=== PATIENT | female | born 1995 | race Caucasian/White ===

== ENCOUNTER 2016-08-22 17:30 | Observation (INO) | payer OTHER ==
[~2016-08-22] VITALS: Ht 160 cm; Wt 92.5 kg
[2016-08-22 20:49] VITALS: BP 125/73
[2016-08-22] MEDS ORDERED: FERROUS SULFAT325 M1 PO (21:51)
[2016-08-22] MEDS ORDERED: PRENATAL LOW IR1 TA1 PO (21:51)
== END 2016-08-22 22:46 | disposition home or self-care (01) ==
LOC: MLD 17:30 → MFCC 17:53
PROVIDERS: ADMIT Obstetrics & Gynecology; ATTEND Obstetrics & Gynecology
DX: O36.8130 Decreased fetal movements, third trimester, not applicable or unspecified (principal); Z3A.36 36 weeks gestation of pregnancy
CPT/HCPCS: 76815; 81000; G0378; Q0092

== ENCOUNTER 2016-09-12 14:51 | Inpatient (IN) | payer OTHER ==
[~2016-09-12] VITALS: Ht 160 cm; Wt 93.4 kg
[2016-09-12] MEDS: LACTATED RINGERS 1,000 ML IV SCH ×2 (01:07→16:52)
[~2016-09-12 14:51] MED LIST: FERR-193 PO; PREN-380 PO
[2016-09-12] MEDS ORDERED: OXYTOCIN 20 UNITS/LR PREMIX 1,000 ML IV SCH (15:08)
[2016-09-12] MEDS ORDERED: AMPICILLIN 2,000 MG in NACL 0.9% 100 ML IV ONE (15:10)
[2016-09-12] MEDS ORDERED: MISOPROSTOL 25 MCG TAB VG PRN (15:10)
[2016-09-12] MEDS ORDERED: OXYTOCIN 10 UNITS/ML VIAL IM SCH (15:10)
[2016-09-12] MEDS ORDERED: PROMETHAZINE 25 MG/ML VIAL IVP PRN (15:10)
[2016-09-12] MEDS ORDERED: AMPICILLIN 2,000 MG in NACL 0.9% 100 ML IV SCH (15:38)
[2016-09-12 16:10] VITALS: BP 118/82
[2016-09-12] MEDS ORDERED: AMPICILLIN 2,000 MG VIAL ONE (16:34)
[2016-09-12 16:36] LABS: BASOPHILS # (AUTO) 0.1 K/uL (0.00-0.22); BASOPHILS % (AUTO) 0.8 % (0.0-2.0); EOSINOPHILS # (AUTO) 0.2 K/uL (0-0.4); EOSINOPHILS % (AUTO) 1.8 % (0.0-4.0); HEMATOCRIT 35.6 % (36-48); HEMOGLOBIN 11.6 g/dL (12.0-16.0); LYMPHOCYTES # (AUTO) 1.6 K/uL (2.5-16.5); LYMPHOCYTES % (AUTO) 17.1 % (20.5-51.1); MEAN CORPUSCULAR HEMOGLOBIN 27 pg (27-31); MEAN CORPUSCULAR HGB CONC 33 g/dL (33-37); MEAN CORPUSCULAR VOLUME 84 fL (80-94); MONOCYTES # (AUTO) 0.7 K/uL (0.8-1.0); MONOCYTES % (AUTO) 6.8 % (1.7-9.3); NEUTROPHILS % (AUTO) 73.5 % (42.2-75.2); PLATELET COUNT (AUTO) 220 K/uL (140-450); RED BLOOD CELL COUNT(AUTO) 4.22 MIL/uL (4.20-5.40); RED CELL DISTRIBUTION WIDTH 14.7 % (11.6-13.7); WHITE BLOOD COUNT (AUTO) 9.6 K/uL (4.8-10.8)
[2016-09-12 17:52] LABS: APPEARANCE,URINE HAZY (CLEAR); BILIRUBIN,URINE NEGATIVE (NEGATIVE); BLOOD, URINE NEGATIVE (NEGATIVE); COLOR,URINE YELLOW (YELLOW); LEUKOCYTE ESTERASE ,URINE 1+ (NEGATIVE); NITRITE, URINE NEGATIVE (NEGATIVE); PH,URINE 5.5 (5.0-9.0); PROTEIN,URINE NEGATIVE (NEGATIVE); UGLUCOSE NEGATIVE (NEGATIVE); UROBILINOGEN,URINE 0.2 EU/dL (0.2 - 1)
[2016-09-12 18:09] LABS: BACTERIA,URINE 2+ /HPF (None Seen); MUCUS,URINE 2+ /LPF (None Seen); RBC,URINE 0-5 /HPF (0-5)
[2016-09-12] MEDS ORDERED: MISOPROSTOL 25 MCG TAB ONE (18:09)
[2016-09-12] MEDS ORDERED: AMPICILLIN 1,000 MG VIAL IVP SCH (20:00)
[2016-09-12] MEDS ORDERED: AMPICILLIN 1,000 MG VIAL ONE (20:50)
[2016-09-12] MEDS ORDERED: OXYTOCIN 20 UNITS/LR PREMIX 1,000 ML IV ONE (22:55)
[2016-09-13] MEDS ORDERED: AMPICILLIN 1,000 MG VIAL ONE ×3 (00:55→09:21)
[2016-09-13] MEDS: LACTATED RINGERS 1,000 ML IV SCH (01:07)
[2016-09-13] MEDS: NALBUPHINE 10 MG/ML AMP IVP PRN ×2 (01:29→06:45)
[2016-09-13] MEDS ORDERED: NALBUPHINE HYDROCHLORIDE 10 MG/ML VIAL ONE (01:30)
[2016-09-13] MEDS ORDERED: PROMETHAZINE 25 MG/ML VIAL ONE ×2 (01:30→06:47)
--- NOTE | 2016-09-13 08:04 | NUR ---
PATIENT HAS BEEN SCREENED AND CATEGORIZED LOW NUTRITION RISK. PATIENT WILL BE SEEN WITHIN 7 DAYS OF ADMISSION. 09/19/[address]
[2016-09-13] MEDS ORDERED: LIDOCAINE 1% 500 MG/50 ML VIAL INJ SCH (09:45)
[2016-09-13] MEDS ORDERED: LIDOCAINE 1% 50 ML ONE (09:50)
[2016-09-13] MEDS ORDERED: OXYTOCIN 10 UNITS/ML VIAL ONE (09:50)
[2016-09-13] MEDS ORDERED: HYDROcodone/APAP 5/325 MG 1 TAB TAB PO PRN (11:20)
[2016-09-13] MEDS ORDERED: oxyCODONE/APAP 5/325 MG 1 TAB TAB PO PRN (11:20)
[2016-09-13] MEDS ORDERED: MEASLES, MUMPS, AND RUBELLA 1 VIAL SQVAC PRN (11:20)
[2016-09-13] MEDS ORDERED: TEMAZEPAM 15 MG CAP PO PRN (11:20)
[2016-09-13] MEDS ORDERED: BENZOCAINE/MENTHOL 20%-0.5% 60 GM CAN TP PRN (11:20)
[2016-09-13] MEDS ORDERED: OXYTOCIN 10 UNITS/ML VIAL IM PRN (11:20)
[2016-09-13] MEDS ORDERED: METHYLERGONOVINE 0.2 MG/ML AMP IM PRN (11:20)
[2016-09-13] MEDS ORDERED: WITCH HAZEL 40 PAD PACKAGE TP PRN (11:20)
[2016-09-13] MEDS ORDERED: oxyCODONE/APAP 5/325 MG 1 TAB TAB ONE (11:27)
[2016-09-13] MEDS: ACETAMINOPHEN EXTRA STRENGTH 500 MG TAB PO PRN (11:39)
[2016-09-13] MEDS ORDERED: ACETAMINOPHEN EXTRA STRENGTH 500 MG TAB ONE (11:42)
[2016-09-13] MEDS ORDERED: DOCUSATE SOD/SENNA 50/8.6 MG 1 TAB PO SCH (21:00)
[2016-09-14 06:51] LABS: HEMATOCRIT 27.6 % (36-48); HEMOGLOBIN 9.2 g/dL (12.0-16.0)
[2016-09-14] MEDS: ACETAMINOPHEN EXTRA STRENGTH 500 MG TAB PO PRN (20:35)
[2016-09-15] MEDS ORDERED: NALBUPHINE 10 MG/ML AMP IM SCH (02:37)
== END 2016-09-15 16:20 | disposition home or self-care (01) | DRG 560 ==
LOC: MLD 14:51 → MFCC 09-13 12:16
PROVIDERS: ADMIT Obstetrics & Gynecology; ATTEND Obstetrics & Gynecology
PROC: 3E0P7GC Introduction of Other Therapeutic Substance into Female Reproductive, Via Natural or Artificial Opening (ICD-10-PCS; 2016-09-12)
PROC: 10E0XZZ Delivery of Products of Conception, External Approach (ICD-10-PCS; principal; 2016-09-13)
PROC: 0HQ9XZZ Repair Perineum Skin, External Approach (ICD-10-PCS; 2016-09-13)
PROC: 10907ZC Drainage of Amniotic Fluid, Therapeutic from Products of Conception, Via Natural or Artificial Opening (ICD-10-PCS; 2016-09-13)
PROC: 3E0234Z Introduction of Serum, Toxoid and Vaccine into Muscle, Percutaneous Approach (ICD-10-PCS; 2016-09-13)
DX: O48.0 Post-term pregnancy (principal); O69.81X0 Labor and delivery complicated by cord around neck, without compression, not applicable or unspecified; O70.0 First degree perineal laceration during delivery; Z3A.40 40 weeks gestation of pregnancy; Z37.0 Single live birth; Z23 Encounter for immunization; Z83.3 Family history of diabetes mellitus; Z82.5 Family history of asthma and other chronic lower respiratory diseases; Z88.6 Allergy status to analgesic agent
CPT/HCPCS: 36415; 51702; 59200; 59409; 81001; 85018; 85025; 86592; 86886; 86900; 86901; 87086; 90715; J0290; J2001; J2300; J2550; J2590; J7120